=== PATIENT | female | born 1985 ===

== ENCOUNTER 2017-08-02 12:51 | Emergency (ER) | payer SELFPAY ==
[2017-08-02] MEDS ORDERED: Dexamethasone 10 MG/ML VIAL ONE (13:20)
== END 2017-08-02 14:00 | disposition home or self-care (01) ==
LOC: ERS 12:51
DX: J32.0 Chronic maxillary sinusitis (principal); F41.9 Anxiety disorder, unspecified; F32.9 Major depressive disorder, single episode, unspecified; F17.210 Nicotine dependence, cigarettes, uncomplicated
CPT/HCPCS: 96372; J1100

== ENCOUNTER 2018-10-14 14:49 | Emergency (ER) | payer SELFPAY ==
[2018-10-14] MEDS ORDERED: Ibuprofen 800 MG TAB ONE (15:40)
[2018-10-14] MEDS ORDERED: Dexamethasone 10 MG/ML VIAL ONE (15:40)
== END 2018-10-14 15:48 | disposition home or self-care (01) ==
LOC: ERS 14:49
DX: K02.9 Dental caries, unspecified (principal); K12.0 Recurrent oral aphthae; F41.9 Anxiety disorder, unspecified; F32.9 Major depressive disorder, single episode, unspecified; F17.210 Nicotine dependence, cigarettes, uncomplicated
CPT/HCPCS: 99282; J1100